=== PATIENT | male | born 1980 | race Caucasian/White ===

== ENCOUNTER 2021-09-11 11:57 | Emergency (ER) | payer SELFPAY ==
[~2021-09-11] VITALS: Ht 190.5 cm; Wt 109.3 kg
[2021-09-11 12:45] VITALS: BP 129/84
--- NOTE | 2021-09-11 13:17 | PHYS DOC ---
Past Medical History Past Medical History: No Pertinent History Past Surgical History: Other Additional Past Surgical Histo: lower back surgery Smoking Status: Former Smoker Alcohol Use: None Drug Use: None General Adult EDM: Chief Complaint: OTHER COMPLAINTS HPI: HPI: Patient is a 40-year-old male who presents today with nasal congestion and chest wall pain from coughing. Patient states he was diagnosed on with COVID-19 and since that time has had increased nasal congestion with ear pain, and chest wall pain when taking deep breaths. Patient states she has been coughing quite a bit and he says now that when he coughs he feels like there is needles in his chest. Patient also states that he has had nasal congestion and now he is having ear pain related to the nasal congestion. He has not taken anything aqul-ysh-wtenoqw medication for any of his symptoms. He states he stays in a penit[facility]iary house and they have very strict rules and what he can and cannot take and he is afraid to take any medications that may contain substances that could rule him out for staying at this penitentiary house. Patient has not had any COVID vaccines or influenza vaccines as well. Review of Systems: Review of Systems: Constitutional: Denies fever or chills. [] Eyes: Denies change in visual acuity. [] HENT: Nasal congestion, bilateral ear pain Respiratory: Cough Cardiovascular: Chest wall pain GI: Denies abdominal pain, nausea, vomiting, bloody stools or diarrhea. [] : Denies dysuria. [] Musculoskeletal: Denies back pain or joint pain. [] Integument: Denies rash. [] Neurologic: Denies headache, focal weakness or sensory changes. [] Endocrine: Denies polyuria or polydipsia. [] Lymphatic: Denies swollen glands. [] Psychiatric: Denies depression or anxiety. [] Heart Score: C/O Chest Pain: N/A Risk Factors: Risk Factors: DM, Current or recent (<one month) smoker, HTN, HLP, family history of CAD, obesity. Risk Scores: Score 0 - 3: 2.5% MACE over next 6 weeks - Discharge Home Score 4 - 6: 20.3% MACE over next 6 weeks - Admit for Clinical Observation Score 7 - 10: 72.7% MACE over next 6 weeks - Early Invasive Strategies Physical Exam: PE: Constitutional: Well developed, well nourished, no acute distress, non-toxic appearance. [] HENT: Normocephalic, atraumatic, bilateral tympanic membranes are bulging with no erythema noted, no drainage noted bilateral ears, nares are reddened and inflamed bilaterally, oropharynx is moist with no redness Eyes: PERRLA, EOMI, conjunctiva normal, no discharge. [] Neck: Normal range of motion, no tenderness, supple, no stridor. [] Cardiovascular:Heart rate regular rhythm, no murmur [] Lungs & Thorax: Bilateral breath sounds clear to auscultation [] Abdomen: Bowel sounds normal, soft, no tenderness, no masses, no pulsatile masses. [] Skin: Warm, dry, no erythema, no rash. [] Back: No tenderness, no CVA tenderness. [] Extremities: No tenderness, no cyanosis, no clubbing, ROM intact, no edema. [] Neurologic: Alert and oriented X 3, normal motor function, normal sensory function, no focal deficits noted. [] Psychologic: Affect normal, judgement normal, mood normal. [] Current Patient Data: Vital Signs: Vital Signs Date Time Temp Pulse Resp B/P (MAP) Pulse Ox O2 Delivery O2 Flow Rate FiO2 09/11/21 12:45 98.0 93 20 129/84 (99) 94 Room Air 98.0 EKG: EKG: [] Radiology/Procedures: Radiology/Procedures: REASON: cough and covid+ PROCEDURE: CHEST AP ONLY Exam Date: 09/11/2021 2:03 PM XR CHEST 1V Indication: Reason: cough and covid+ / Spl. Instructions: / History: . FINDINGS/ IMPRESSION: The cardiac silhouette is borderline enlarged without congestion. There is no focal consolidation, pleural effusion or pneumothorax. The visualized osseous structures are intact. Electronically signed by: Les Bustamante MD (09/11/2021 2:24 PM) [facility] Course & Med Decision Making: Course & Med Decision Making Pertinent Labs and Imaging studies reviewed. (See chart for details) 1450 reviewed radiological results with patient. Informed him there was no a cute processes noted, patient will need to continue to quarantine for 10 full days from the first day of symptoms treat his symptoms with zwsd-xby-[id number] medications as described in the discharge instructions follow-up with your primary care physician or clinic listed on the brochure for further management of all your symptoms. Verbalized understanding of this and agreeable to the plan of care. Golden Disclaimer: Golden Disclaimer: This electronic medical record was generated, in whole or in part, using a voice recognition dictation system. Departure Departure Impression: Primary Impression: COVID-19 Disposition: HOME / SELF CARE / HOMELESS Condition: STABLE Referrals: NO PCP (PCP) Additional Instructions: Nasal spray for nasal congestion Flonase 2 sprays each nare twice daily Reqb-ogw-vbptccr medications such as Mucinex as needed for coughing Vicks VapoRub to help with nasal congestion and coughing Cool-mist humidifier to help with the coughing Btpg-gnf-oriyemp cough drops to help also with the coughing sore throat and nasal congestion. If your symptoms last greater than 10 days please follow-up with one of the clinics provided in the brochure for further management. You have been diagnosed with COVID-19. It is an infection caused by a new type of coronavirus. COVID-19 will cause cold-like or mild flu symptoms in most. It can cause more severe symptoms like problems breathing in some. There is no treatment for COVID-19. The body will clear the infection over time. Self-care will help to ease discomfort. Steps to Take: Self-Care Rest as needed. Healthy habits may help you feel better. Steps include: Choose healthy foods including fruits and vegetables. Drink water throughout the day. Get plenty of sleep each night. If you smoke, try to quit. It may ease breathing. Avoid alcohol. Keep Others Healthy The virus can spread to others. Droplets are released every time you sneeze or cough. The droplets can get into the mouth, nose, or eyes of people near you and lead to infection. To lower the chances of spreading COVID-19 to others: Stay at home until your doctor has said it is safe to leave. If you tested positive this will mean staying isolated until both of the following are true: At least 10 days have passed since the start of illness. You are free of fever for at least 72 hours without the use of medicine. During this time: - Avoid public areas, events, or transportation. Do not return to work or school until your doctor has said it is safe to do so. - Call ahead if you need to go to a medical center. Let them know you may have COVID-19. It will help them guide you where to go. They may also ask you to wear a facemask when you come to the office. - If you call for emergency medical services, let them know you may have COVID- 19. While at home: - Try to avoid close contact with others. Stay about 6 feet away. - If possible, spend most of your time in a separate room from others. - Use a face mask if you will be in close contact with others such as sharing a room or vehicle. - Have someone wipe down common surfaces in the home. Use household pig farmer every day on areas like doorknobs, counters, or sinks. - Cough or sneeze into a tissue. Throw the tissue away right after use. If a tissue is not available, cough or sneeze into your elbow. - Wash your hands often. Wash them after sneezing or coughing. Use soap and water and wash for at least 20 seconds. Alcohol based hand catch basin cleaner can be used if soap and water is not available. - Do not prepare food for others. Avoid sharing personal items like forks, spoons, or toothbrushes. - Avoid close contact with pets while you are sick. There is no evidence of the virus passing to pets. This is a safety step until more is known about this virus. Isolation can be frustrating. Social interaction can help. Keep in touch with friends and family through phone and tech options. You can still interact with others in your home, just keep a safe distance of about 6 feet. Follow-up: Your doctors office will check in with you to see if there are any changes in your health. You may be asked to keep track of symptoms to share with them. They will also let you know when you are clear to be in public again. Problems to Look Out For: Contact your doctor if your recovery is not going as you expect. Get emergency care if you have problems such as: - Trouble breathing - Nonstop chest pain or pressure - Changes in awareness, confusion, or problems waking - Lips or face have bluish color - Worsening of symptoms If you think you have an emergency, call for emergency medical services right away. As taken from [facility] SULLY CARR APRN Sep 11, 2021 13:17
--- NOTE | 2021-09-11 14:27 | RAD ---
Exam Date: 09/11/2021 2:03 PM XR CHEST 1V Indication: Reason: cough and covid+ / Spl. Instructions: / History: . FINDINGS/ IMPRESSION: The cardiac silhouette is borderline enlarged without congestion. There is no focal consolidation, pleural effusion or pneumothorax. The visualized osseous structures are intact. Electronically signed by: Les Bustamante MD (09/11/2021 2:24 PM) [facility]
== END 2021-09-11 15:10 | disposition home or self-care (01) ==
LOC: ER 11:57
DX: U07.1 COVID-19 (principal); Z87.891 Personal history of nicotine dependence
CPT/HCPCS: 71045; 99283